=== PATIENT | male | born 2000 | race Caucasian/White ===

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

== ENCOUNTER 2020-06-28 16:28 | Emergency (ER) | payer MEDICAID ==
[~2020-06-28] VITALS: Ht 177.8 cm; Wt 54.7 kg
--- NOTE | 2020-06-28 17:00 | NUR ---
DR JONES AT BEDSIDE TO ASSESS. PT IN BED WITH NO SIGNS OR SYMPTOMS OF ACUTE DISTRSES NOTED RESPIRATIONS EVEN AND UNLABORED
[2020-06-28] MEDS ORDERED: LIDOCAINE-MPF 1%, 5ML INFIL ONE (17:30)
[2020-06-28] MEDS ORDERED: SODIUM CHLORIDE 0.9% 1,000ML IVBOLUS ONE (17:30)
[2020-06-28] MEDS ORDERED: SODIUM CHLORIDE FLUSH 10ML SYR IVF ONE (17:30)
[2020-06-28] MEDS ORDERED: IBUPROFEN 600 MG TABLET ONE (17:37)
[2020-06-28 18:02] LABS: BASOPHILS % (AUTO) 0 % (0-1); EOSINOPHILS % (AUTO) 1 % (1-7); LYMPHOCYTES % (AUTO) 10 % (22-44); MD NO; MEAN CORPUSCULAR HEMOGLOBIN 33.2 pg (27.5-34.5); MEAN CORPUSCULAR HGB CONC 34.7 g/dL (33.2-36.2); MEAN PLATELET VOLUME 8.9 fL (7.4-10.4); MONOCYTES % (AUTO) 7 % (2-9); NEUTROPHILS % (AUTO) 82 % (42-75); PLATELET COUNT 243 x10^3/uL (130-400); RED BLOOD COUNT 4.92 x10^6/uL (4.38-5.82); RED CELL DISTRIBUTION WIDTH 12.9 % (9.4-14.8)
[2020-06-28 18:03] LABS: ALBUMIN 4.7 g/dL (3.4-5.0); ANION GAP 5 mmol/L (5-15); CALCIUM 9.3 mg/dL (8.5-10.1); CHLORIDE 105 mmol/L (98-107); CREATININE 0.97 mg/dL (0.7-1.3)
[2020-06-28] MEDS ORDERED: LIDOCAINE-MPF 1%, 5ML ONE (18:03)
[2020-06-28] MEDS ORDERED: NEOSPORIN OINT. PKT 1 PACKET ONE (19:12)
--- NOTE | 2020-06-28 20:35 | NUR ---
MD AT BEDSIDE TO ASSESS. PT SUPINE IN [facility] WITH MOTHER AT BEDSIDE NO SIGNS OR SYMPTOMS OF ACUTE DISTRESS NOTED RESPIRATIONS EVEN AND UNLABORED
[2020-06-28 21:23] VITALS: BP 102/68
--- NOTE | 2020-06-28 21:23 | NUR ---
PT PROVIDED A PACK OF CRACKERS AND SOME OJ TO SIP ON BEFORE ATTEMPTING TO STAND. PT WITH NO SIGNS OR SYMPTOMS OF ACUTE DSITRESS NOTED RESPIRATIONS EVEN AND UNLABORED
== END 2020-06-28 21:50 | disposition home or self-care (01) ==
LOC: ED 18:32
DX: S01.511A Laceration without foreign body of lip, initial encounter (principal); R55 Syncope and collapse; R42 Dizziness and giddiness; R51.9 Headache, unspecified; R94.31 Abnormal electrocardiogram [ECG] [EKG]; X58.XXXA Exposure to other specified factors, initial encounter; Y93.89 Activity, other specified; Y92.89 Other specified places as the place of occurrence of the external cause; Y99.8 Other external cause status
CPT/HCPCS: 12052; 36415; 70486; 80048; 82040; 85025; 93005; 96360; 99285; J7030

== ENCOUNTER 2020-07-03 15:13 | Emergency (ER) | payer MEDICAID ==
[~2020-07-03] VITALS: Ht 177.8 cm; Wt 53.9 kg
[2020-07-03 15:25] VITALS: BP 135/91
--- NOTE | 2020-07-03 15:36 | NUR ---
CARE FOR DC PROVIDED. NO ACUTE DISTRESS NOTED. NO IV TO DC. REVIEWED DC INSTRUCTIONS WITH PT. UNDERSTANDING VERBALIZED. PT LEFT AMB, GAIT STEADY.
== END 2020-07-03 15:38 | disposition home or self-care (01) ==
LOC: ED 15:20
DX: S01.511D Laceration without foreign body of lip, subsequent encounter (principal); X58.XXXD Exposure to other specified factors, subsequent encounter
CPT/HCPCS: 99282

== ENCOUNTER 2020-07-14 13:22 | Day surgery (SDC) | payer MEDICAID ==
[~2020-07-14] VITALS: Ht 177.8 cm; Wt 53.7 kg
[2020-07-14 13:56] VITALS: BP 108/72
[2020-07-14] MEDS ORDERED: LACTATED RINGERS 1,000 ML IV SCH (14:00)
[2020-07-14] MEDS ORDERED: CHLORHEXIDINE 15 ML UDC PO ONE (14:00)
[2020-07-14] MEDS ORDERED: PROMETHAZINE 25 MG/ML, 1ML IVPush PRN (14:30)
[2020-07-14] MEDS ORDERED: FENTANYL PF 100 MCG/2ML IV PRN (14:30)
[2020-07-14] MEDS ORDERED: LABETALOL 5MG/ML, 20ML IV PRN (14:30)
[2020-07-14] MEDS ORDERED: hydrALAzine 20 MG/ML, 1ML IV PRN (14:30)
[2020-07-14] MEDS ORDERED: HYDROmorphone 1 MG/ML, 1ML INJ IVPush PRN (14:30)
[2020-07-14] MEDS ORDERED: MEPERIDINE/PF 25MG/0.5ML IVPush PRN (14:30)
[2020-07-14] MEDS ORDERED: OXYcodone 5 MG/5 ML ORAL.SOL UDC PO PRN (14:30)
[2020-07-14] MEDS ORDERED: DIPHENHYDRAMINE 50 MG/ML, 1ML IVPush PRN (14:30)
[2020-07-14] MEDS ORDERED: HALOPERIDOL 5 MG/ML IV PRN (14:30)
[2020-07-14] MEDS ORDERED: ACETAMINOPHEN 325 MG TABLET PO PRN (14:30)
[2020-07-14] MEDS ORDERED: LIDOCAINE/PF 1%-EPI 1:200K, 30 ML ONE (14:39)
[2020-07-14] MEDS ORDERED: COCAINE TOPICAL SOLN 4%, 4ML ONE (14:39)
[2020-07-14] MEDS ORDERED: OXYMETAZOLINE NASAL SPRAY 0.05%,30ML ONE (14:39)
[2020-07-14] MEDS ORDERED: NEOSPORIN OINT, 15GM ONE (14:39)
[2020-07-14] MEDS ORDERED: FENTANYL PF 100 MCG/2ML ONE ×2 (14:59→15:18)
[2020-07-14] MEDS ORDERED: MIDAZOLAM 1 MG/ML, 2ML ONE (15:00)
[2020-07-14] MEDS ORDERED: PROPOFOL 10 MG/ML, 20ML ONE (15:52)
[2020-07-14] MEDS ORDERED: ROCURONIUM 10MG/ML,5ML ONE (15:52)
[2020-07-14] MEDS ORDERED: GLYCOPYRROLATE 0.2MG/1ML, 5ML ONE (15:52)
[2020-07-14] MEDS ORDERED: ONDANSETRON 2MG/ML, 2ML ONE (15:52)
[2020-07-14] MEDS ORDERED: CEFAZOLIN 1,000 MG ONE (15:52)
[2020-07-14] MEDS ORDERED: DEXAMETHASONE 4 MG/ML, 1ML ONE (15:52)
[2020-07-14] MEDS ORDERED: SUCCINYLCHOLINE 20 MG/ML, 10ML ONE (15:52)
[2020-07-14] MEDS ORDERED: NEOSTIGMINE 1 MG/ML, 10ML ONE (15:52)
[2020-07-14] MEDS ORDERED: MEPERIDINE/PF 25MG/ML,1ML ONE (16:15)
[2020-07-14] MEDS ORDERED: ACETAMINOPHEN 650 MG/20.3 ML UDC ONE (16:25)
[2020-07-14] MEDS ORDERED: OXYcodone 5 MG/5 ML ORAL.SOL UDC ONE (16:25)
== END 2020-07-14 17:30 | disposition home or self-care (01) ==
LOC: OR 13:22
PROVIDERS: ATTEND Otolaryngology Facial Plastic Surgery
DX: S02.2XXA Fracture of nasal bones, initial encounter for closed fracture (principal); F12.90 Cannabis use, unspecified, uncomplicated; F17.210 Nicotine dependence, cigarettes, uncomplicated; W19.XXXA Unspecified fall, initial encounter; Y93.89 Activity, other specified; Y92.89 Other specified places as the place of occurrence of the external cause; Y99.8 Other external cause status; Z20.822 Contact with and (suspected) exposure to COVID-19; Z72.89 Other problems related to lifestyle
CPT/HCPCS: 30520; 87635; J0330; J0690; J1100; J2250; J2405; J2704; J3010; J7120; J2710